=== PATIENT | male | born 1960 | race Caucasian/White ===

== ENCOUNTER 2016-08-12 11:57 | Inpatient (IN) | payer MEDICAID ==
[2016-08-12] MEDS ORDERED: Ondansetron 4 MG/2 ML SDV IV PRN (14:11)
[2016-08-12] MEDS ORDERED: Temazepam 15 MG Cap PO PRN (14:11)
[2016-08-12] MEDS ORDERED: Bisacodyl 10 MG Supp RECTAL PRN (14:19)
[2016-08-12] MEDS ORDERED: TIZANIDINE 4 MG PO PRN (14:19)
--- NOTE | 2016-08-12 14:34 | PCM.HP ---
H&P History of Present Illness - General Date of Service: 08/12/16 Admit Problem/Dx: Admission Diagnosis/Problem Admission Diagnosis/Problem Weakness Source of Information: Patient, Old records - History of Present Illness Initial Comments - Free Text/Narative: Chief complaint: Swing bed admission for generalized weakness and deconditioning. History of present illness: Patient was recently hospitalized in [place]. He required ICU stay. He had severe lactic acidosis, probably combination of acute renal failure, chronic metformin therapy, chronic alcohol dependence and intoxication. He was given fluid challenge there are no symptoms have largely resolved. They were concerned about toxic ingestion but test for methanol and ethylene glycol were negative. He had and the tap of ascites for SBP and this was also negative. He is feeling pretty good currently. He is tolerating diet , he's beginning to walk around some with the bathroom but still using occasional assistance. Past medical history: Alcohol dependence repeat treatment, he'll maintain long periods of sobriety months on and go on large binges drinking half a gallon of vodka daily, history of acute renal failure, hepatitis C, chronic pain syndrome , chronic pancreatitis, history of UTI history depression history gastroparesis , hypertension, history of seizures, history of peptic ulcer disease, history of lactic acidosis, history diabetes to last A1c 8.6. Medications: Prozac, baclofen, Duca lax, BuSpar, magnesium oxide, Lasix, tramadol, Zofran, Norvasc, NovoLog sliding scale, Levemir low-dose six units daily, metformin, Januvia, trazodone, pancreatic enzymes, Neurontin, Toprol, Zanaflex, when necessary Viagra, Prilosec, Vistaril, Bentyl, multivitamin. Allergies: Compazine and Reglan and Toradol. Family history: Noncontributory. History: Heavy alcohol dependence history, long periods sobriety followed by periods of heavy inch drinking of hard alcohol. He lives alone, his father's in my not, doesn't have a lot of social support, is on disability. Smokes 1.5 pack per day. Review of systems: Denies fever denies chest pain denies dyspnea. Still notes mild upset stomach. No diarrhea and no dysuria no rash no joint pain. No self harming ideation. No hallucinations or seizures. Physical exam: Pressure 150 the over 90, pulse 80, afebrile. Resting comfortably in bed. Pleasant, cooperative, euthymic, no distress, heart and lungs clear to auscultation, abdomen soft nontender, external is warm well perfused without edema. Assessment and plan: #1. Swing bed admission for reconditioning after prolonged ICU stay for severe lactic acidosis secondary to alcohol dependence. PT, OT consults. Seems to be doing fairly well, do not anticipate prolonged stay. #2. Alcohol dependence, recurrent. He plans on following up with his prior treatment regimen outpatient at [facility] on return home. #3. Diabetes mellitus. Borderline control. Monitor sugars here. Recommend permanent discontinuation of metformin given chronic liver and kidney issues along with this recent severe episode of lactic acidosis. Continue Januvia and insulin. #4. Recent acute renal failure. Recheck electrolytes a.m. He is tolerating oral intake. Neck Pain Score (Numeric/FACES): 4 Lower Abdomen Pain Score (Numeric/FACES): 6 - Related Data Allergies/Adverse Reactions: Allergies Allergy/AdvReac Type Severity Reaction Status Date / Time blue dye Allergy Other Verified 08/12/16 11:00 ketorolac [From Toradol] Allergy Itching Verified 08/12/16 10:30 yellow dye Allergy Other Verified 08/12/16 11:00 metoclopramide [From Reglan] AdvReac Tachycardia Verified 08/12/16 12:56 prochlorperazine AdvReac Tachycardia Verified 08/12/16 12:56 [From Compazine] Home Medications: Home Meds Baclofen 10 mg PO TID 08/12/16 [History] Bisacodyl [Dulcolax] 10 mg RECTAL DAILY PRN 08/12/16 [History] Dicyclomine [Bentyl] 10 mg PO QIDACANDBED 08/12/16 [History] FLUoxetine HCl [Fluoxetine HCl] 40 mg PO DAILY 08/12/16 [History] Furosemide [Lasix] 40 mg PO DAILY 08/12/16 [History] Gabapentin [Neurontin] 600 mg PO TID 08/12/16 [History] Insulin Aspart [NovoLOG] 4 - 10 units SQ TIDMEALS 08/12/16 [History] Insulin Detemir [Levemir] 6 units SQ BEDTIME 08/12/16 [History] Lipase/Protease/Amylase [Viokace 20,490-78,300 Units Tb] 1 tab PO TIDMEALS 08/12 [History] Magnesium Oxide 500 mg PO DAILY 08/12/16 [History] Metoprolol Succinate [Toprol XL] 100 mg PO DAILY 08/12/16 [History] Multivitamin [Multivitamins] 1 each PO DAILY 08/12/16 [History] Omeprazole 20 mg PO BIDAC 08/12/16 [History] Ondansetron HCl [Ondansetron] 4 - 8 mg PO TID PRN 08/12/16 [History] Sildenafil [Viagra] 50 mg PO DAILY PRN 08/12/16 [History] SitaGLIPtin [Januvia] 100 mg PO DAILY 08/12/16 [History] amLODIPine [Norvasc] 5 mg PO DAILY 08/12/16 [History] busPIRone [Buspar] 15 mg PO BID 08/12/16 [History] hydrOXYzine Pamoate [Hydroxyzine Pamoate] 50 mg PO Q4H PRN 08/12/16 [History] metFORMIN HCl [Metformin HCl] 1,000 mg PO BIDMEALS 08/12/16 [History] tiZANidine [Zanaflex] 2 - 4 mg PO Q6HR PRN 08/12/16 [History] traMADol HCl [Tramadol HCl ER] 100 mg PO DAILY PRN 08/12/16 [History] traZODone HCl [Trazodone HCl] 200 mg PO BEDTIME 08/12/16 [History] Past Medical History Cardiovascular History: Reports: Aneurysm, Hypertension, Other (see below) Other Cardiovascular History: AA repair Gastrointestinal History: Reports: GERD, Other (see below) Other Gastrointestinal History: duodenal ulcers, ascities Musculoskeletal History: Reports: Neck pain, chronic, Other (see below) Other Musculoskeletal History: 2 disc replaced in neck Psychiatric History: Reports: Addiction, Anxiety, Depression, Other (see below) Other Psychiatric History: recent relapse in April with acute alcolholism Endocrine/Metabolic History: Reports: Diabetes, type II, Other (see below) Other Endocrine/Metabolic History: pancreatitis Hematologic History: Reports: Anemia, Other (see below) Other Hematologic History: "low sodium, stopped making platelets" Dermatologic History: Reports: Other (see below) Other Dermatologic History: hx of coccyx pressure ulcer - Infectious Disease History Infectious Disease History: Reports: Hepatitis C, Other (see below) Other Infectious Disease History: hx of mrsa - Past Surgical History Cardiovascular Surgical History: Reports: AAA repair GI Surgical History: Reports: Cholecystectomy Social & Family History - Family History Family Medical History: Noncontributory - Tobacco Use Smoking Status *Q: Former Smoker Years of Tobacco use: 45 Packs/Tins Daily: 1 Used Tobacco, but Quit: No - Caffeine Use Caffeine Use: Reports: Coffee, Soda - Alcohol Use Days Per Week of Alcohol Use: 7 Number of Drinks Per Day: 20 Total Drinks Per Week: 140 Date of Last Drink: 08/01/16 - Recreational Drug Use Recreational Drug Use: No H&P Review of Systems - Review of Systems: Review Of Systems: See Below Exam - Exam Exam: See Below - Vital Signs Vital Signs: Last Vital Signs Temp 36.7 C 08/12/16 12:06 Pulse 82 08/12/16 12:06 Resp 20 08/12/16 12:06 BP 152/78 H 08/12/16 12:06 Pulse Ox 99 08/12/16 12:06 Weight: 67.018 kg *Q Meaningful Use (ADM) - VTE *Q VTE Criteria *Q: - Stroke *Q Stroke Criteria *Q: - AMI *Q AMI Criteria *Q: Problem List Initiated/Reviewed/Updated: Yes Orders Last 24hrs: Active Orders 24 hr Category Date Time Status Admission Status [Patient Status] [ADT] Routine ADT 08/12/16 09:50 Active Patient Status [ADT] Routine ADT 08/12/16 14:11 Ordered Ambulate [RC] PER UNIT ROUTINE Care 08/12/16 14:12 Ordered Blood Glucose Check, Bedside [RC] QIDACANDBED Care 08/12/16 14:11 Ordered Oxygen Therapy [RC] PRN Care 08/12/16 14:11 Ordered Up ad Shabana [RC] ASDIRECTED Care 08/12/16 14:11 Ordered VTE/DVT Education [RC] PER UNIT ROUTINE Care 08/12/16 14:11 Ordered Vital Signs [RC] Q4H Care 08/12/16 14:11 Ordered Consult to Mold Design Engineer [CONS] Routine Cons 08/12/16 13:35 Active OT Evaluation and Treatment [CONS] Routine Cons 08/12/16 13:20 Active PT Evaluation and Treatment [CONS] Routine Cons 08/12/16 13:20 Active Regular Diet [DIET] Diet 08/12/16 Dinner Ordered CBC WITH AUTO DIFF [HEME] AM Lab 08/13/16 05:11 Ordered COMPREHENSIVE METABOLIC PN,CMP [CHEM] AM Lab 08/13/16 05:11 Ordered INR,PT,PROTHROMBIN TIME [COAG] AM Lab 08/13/16 05:11 Ordered MAGNESIUM [CHEM] AM Lab 08/13/16 05:11 Ordered Acetaminophen [Tylenol] Med 08/12/16 14:11 Ordered 650 mg PO Q4H PRN Baclofen [Lioresal] Med 08/12/16 20:00 Ordered 10 mg PO TID Bisacodyl [Dulcolax] Med 08/12/16 14:19 Ordered 10 mg RECTAL DAILY PRN Dicyclomine [Bentyl] Med 08/12/16 17:00 Ordered 10 mg PO QIDACANDBED FLUoxetine HCl [Fluoxetine HCl] Med 08/13/16 08:00 Ordered 40 mg PO DAILY Furosemide [Lasix] Med 08/13/16 08:00 Ordered 40 mg PO DAILY Gabapentin Med 08/12/16 20:00 Ordered 600 mg PO TID Insulin Aspart [NovoLOG] Med 08/12/16 18:00 Ordered 4 - 10 unit SUBCUT TIDMEALS Insulin Detemir Med 08/12/16 20:00 Ordered 6 units SQ BEDTIME Lipase/Protease/Amylase [Viokace 20,880-78,300 Units Tb Med 08/12/16 18:00 Ordered ] 1 tab PO TIDMEALS Magnesium Oxide [Magnesium Oxide] Med 08/13/16 08:00 Ordered 500 mg PO DAILY Metoprolol Succinate [Toprol XL] Med 08/13/16 08:00 Ordered 100 mg PO DAILY Multivitamin [Multivitamins] Med 08/13/16 08:00 Ordered 1 each PO DAILY Omeprazole Med 08/12/16 17:00 Ordered 20 mg PO BIDAC Ondansetron HCl Med 08/12/16 14:19 Ordered 4 - 8 mg PO TID PRN Ondansetron [Zofran] Med 08/12/16 14:11 Ordered 4 mg IV Q6H PRN SitaGLIPtin [Januvia] Med 08/13/16 08:00 Ordered 100 mg PO DAILY Temazepam [Restoril] Med 08/12/16 14:11 Ordered 15 mg PO BEDTIME PRN amLODIPine [Norvasc] Med 08/13/16 08:00 Ordered 5 mg PO DAILY busPIRone [Buspar] Med 08/12/16 20:00 Ordered 15 mg PO BID hydrOXYzine Pamoate [Hydroxyzine Pamoate] Med 08/12/16 14:19 Ordered 50 mg PO Q4H PRN tiZANidine [Zanaflex] Med 08/12/16 14:19 Ordered 2 - 4 mg PO Q6HR PRN traMADol HCl [Tramadol HCl ER] Med 08/12/16 14:19 Ordered 100 mg PO DAILY PRN traZODone HCl [Trazodone HCl] Med 08/12/16 20:00 Ordered 200 mg PO BEDTIME Resuscitation Status Routine Resus Stat 08/12/16 14:11 Ordered Medication Orders Acetaminophen (Tylenol) 650 mg PO Q4H PRN PRN Reason: Pain (Mild 1-3)/fever Ondansetron HCl (Zofran) 4 mg IV Q6H PRN PRN Reason: Nausea/Vomiting Temazepam (Restoril) 15 mg PO BEDTIME PRN PRN Reason: Sleep
[2016-08-12] MEDS: DICYCLOMINE 10 MG PO SCH ×2 (16:42→22:01)
[2016-08-12] MEDS: TRAMADOL 100 MG PO PRN (16:44)
[2016-08-12] MEDS: Omeprazole 20 MG Cap.CR PO SCH (16:47)
[2016-08-12] MEDS: ONDANSETRON 4 MG PO PRN (16:51)
[2016-08-12] MEDS: AMYLASE PO SCH (17:00)
[2016-08-12] MEDS: PROTEASE PO SCH (17:00)
[2016-08-12] MEDS: LIPASE PO SCH (17:00)
[2016-08-12] MEDS: TRAZODONE 100 MG PO SCH (21:59)
[2016-08-12] MEDS: GABAPENTIN 600 MG PO SCH (22:01)
[2016-08-12] MEDS: INSULIN DETEMIR SQ SCH (22:26)
[2016-08-13] MEDS: ONDANSETRON 4 MG PO PRN (06:48)
[2016-08-13] MEDS: DICYCLOMINE 10 MG PO SCH ×4 (06:49→20:28)
[2016-08-13] MEDS: Omeprazole 20 MG Cap.CR PO SCH ×2 (06:49→17:45)
[2016-08-13] MEDS: Acetaminophen 325 MG Tab PO PRN ×2 (06:59→20:40)
[2016-08-13] MEDS: FLUOXETINE 20 MG PO SCH (07:57)
[2016-08-13] MEDS: FUROSEMIDE 40 MG PO SCH (07:58)
[2016-08-13] MEDS: SITAGLIPTIN 100 MG PO SCH (07:58)
[2016-08-13] MEDS: METOPROLOL SUCCINATE 100 MG PO SCH (07:59)
[2016-08-13] MEDS: Multivitamins with Iron/Calcium/Folic Acid/Minerals Tab PO SCH (08:00)
[2016-08-13] MEDS: Magnesium Oxide 400 MG Tab PO SCH (08:00)
[2016-08-13] MEDS: GABAPENTIN 600 MG PO SCH ×3 (08:00→20:29)
[2016-08-13] MEDS: PROTEASE PO SCH ×4 (08:01→18:35)
[2016-08-13] MEDS: LIPASE PO SCH ×4 (08:01→18:35)
[2016-08-13] MEDS: AMYLASE PO SCH ×4 (08:01→18:35)
[2016-08-13] MEDS ORDERED: Sodium Chloride 0.9% 1,000 ML IV ONE (10:28)
[2016-08-13] MEDS ORDERED: Insulin Aspart 100 Units/ML 3 ML Pen SUBCUT ONE (10:30)
[2016-08-13] MEDS ORDERED: Furosemide 20 MG/2 ML VIAL IVPUSH ONE (10:31)
[2016-08-13] MEDS: Sodium Chloride 0.9% 1,000 ML IV SCH ×2 (15:34→23:37)
[2016-08-13] MEDS ORDERED: Sodium Chloride 0.9% 10 ML Syringe FLUSH PRN (15:37)
[2016-08-13] MEDS: INSULIN ASPART 100 UNIT/ML SUBCUT SCH (17:45)
[2016-08-13] MEDS: TRAZODONE 100 MG PO SCH (20:30)
[2016-08-13] MEDS: INSULIN DETEMIR SQ SCH (20:36)
[2016-08-14] MEDS: DICYCLOMINE 10 MG PO SCH ×4 (06:14→19:50)
[2016-08-14] MEDS: Omeprazole 20 MG Cap.CR PO SCH ×2 (06:15→17:45)
[2016-08-14] MEDS: Sodium Chloride 0.9% 1,000 ML IV SCH ×3 (07:40→23:32)
[2016-08-14] MEDS: Magnesium Oxide 400 MG Tab PO SCH (07:46)
[2016-08-14] MEDS: Multivitamins with Iron/Calcium/Folic Acid/Minerals Tab PO SCH (07:46)
[2016-08-14] MEDS: LIPASE PO SCH ×3 (07:47→17:45)
[2016-08-14] MEDS: GABAPENTIN 600 MG PO SCH ×3 (07:47→19:52)
[2016-08-14] MEDS: PROTEASE PO SCH ×3 (07:47→17:45)
[2016-08-14] MEDS: AMYLASE PO SCH ×3 (07:47→17:45)
[2016-08-14] MEDS: FLUOXETINE 20 MG PO SCH (07:48)
[2016-08-14] MEDS: METOPROLOL SUCCINATE 100 MG PO SCH (07:49)
[2016-08-14] MEDS: FUROSEMIDE 40 MG PO SCH (07:49)
[2016-08-14] MEDS: SITAGLIPTIN 100 MG PO SCH (07:49)
[2016-08-14] MEDS: INSULIN ASPART 100 UNIT/ML SUBCUT SCH ×3 (07:50→17:45)
[2016-08-14] MEDS ORDERED: Sodium Polystyrene Sulfonate 15 GM/60 ML Susp 60 ML Bot PO ONE (09:37)
[2016-08-14] MEDS: Acetaminophen 325 MG Tab PO PRN ×2 (10:13→19:57)
[2016-08-14] MEDS: TRAZODONE 100 MG PO SCH (19:51)
[2016-08-14] MEDS: INSULIN DETEMIR SQ SCH (20:02)
[2016-08-15] MEDS: DICYCLOMINE 10 MG PO SCH ×4 (06:54→19:48)
[2016-08-15] MEDS: Omeprazole 20 MG Cap.CR PO SCH ×2 (06:54→17:52)
[2016-08-15] MEDS: Magnesium Oxide 400 MG Tab PO SCH ×2 (08:09→19:47)
[2016-08-15] MEDS: INSULIN ASPART 100 UNIT/ML SUBCUT SCH ×4 (08:09→17:50)
[2016-08-15] MEDS: Multivitamins with Iron/Calcium/Folic Acid/Minerals Tab PO SCH (08:09)
[2016-08-15] MEDS: FUROSEMIDE 40 MG PO SCH (08:10)
[2016-08-15] MEDS: FLUOXETINE 20 MG PO SCH (08:10)
[2016-08-15] MEDS: SITAGLIPTIN 100 MG PO SCH (08:10)
[2016-08-15] MEDS: GABAPENTIN 600 MG PO SCH ×4 (08:11→19:50)
[2016-08-15] MEDS: PROTEASE PO SCH ×4 (08:11→17:51)
[2016-08-15] MEDS: LIPASE PO SCH ×4 (08:11→17:51)
[2016-08-15] MEDS: AMYLASE PO SCH ×4 (08:11→17:51)
[2016-08-15] MEDS: METOPROLOL SUCCINATE 100 MG PO SCH (08:12)
[2016-08-15] MEDS ORDERED: Magnesium Sulfate/Water 2 GM in Premix Bag 1 BAG IV ONE (09:32)
[2016-08-15] MEDS: TRAZODONE 100 MG PO SCH (19:48)
[2016-08-15] MEDS: ONDANSETRON 4 MG PO PRN (19:49)
[2016-08-15] MEDS: INSULIN DETEMIR SQ SCH (19:53)
[2016-08-15] MEDS: Acetaminophen 325 MG Tab PO PRN (20:00)
[2016-08-16] MEDS: Omeprazole 20 MG Cap.CR PO SCH ×2 (06:46→16:17)
[2016-08-16] MEDS: DICYCLOMINE 10 MG PO SCH ×4 (06:47→19:44)
[2016-08-16 07:37] LABS: CHLORIDE,CL 104 mmol/L (98-107); SODIUM,NA 136 mmol/L (136-145)
[2016-08-16] MEDS: METOPROLOL SUCCINATE 100 MG PO SCH (07:44)
[2016-08-16] MEDS: FUROSEMIDE 40 MG PO SCH (07:45)
[2016-08-16] MEDS: SITAGLIPTIN 100 MG PO SCH (07:46)
[2016-08-16] MEDS: AMYLASE PO SCH ×3 (07:47→18:01)
[2016-08-16] MEDS: FLUOXETINE 20 MG PO SCH (07:47)
[2016-08-16] MEDS: PROTEASE PO SCH ×3 (07:47→18:01)
[2016-08-16] MEDS: LIPASE PO SCH ×3 (07:47→18:01)
[2016-08-16] MEDS: GABAPENTIN 600 MG PO SCH ×3 (07:48→19:45)
[2016-08-16] MEDS: ONDANSETRON 4 MG PO PRN (07:49)
[2016-08-16] MEDS: INSULIN ASPART 100 UNIT/ML SUBCUT SCH ×3 (07:50→18:01)
[2016-08-16] MEDS: Magnesium Oxide 400 MG Tab PO SCH ×2 (07:50→19:43)
[2016-08-16] MEDS: Multivitamins with Iron/Calcium/Folic Acid/Minerals Tab PO SCH (07:50)
--- NOTE | 2016-08-16 08:48 | PN ---
Progress Note for CINDA LUONG Date: 08/15/2016 Room #: VM.211 SUBJECTIVE: A 55-year-old white male, has been on swing bed for several days following an ICU stay in [place] for alcohol related liver and pancreatic disease. His strength has been improving. His appetite is voracious. He requests what the nurses described as vast quantities of fluid. I explained to him what we have available to him on the weekends for fluid intake. Hopefully, it will meet his needs, may not be as much as he would like. He had required electrolyte management this weekend. His potassium had been up to 6.9 on 08/13/2016 and then on 08/14/2016 it was 6.6. At that time, he was given a dose of Kayexalate orally. His potassium came down to 5.7 yesterday. He is feeling better, getting his strength back. Ambulating in the hallways. He requests to go outside. OBJECTIVE: He is alert. He is afebrile. His vital signs are stable. LABORATORY: Today, his potassium is down to 5.3. His hemoglobin is 9.0, stable. Magnesium low at 1.1. ASSESSMENT: Alcohol dependence, diabetes, hyperkalemia - improved to resolved. Hypomagnesemia. PLAN: We will add some magnesium sulfate 2 g IV 1 dose today. Then, increase his magnesium orally to b.i.d. Repeat his lab work in the morning. FM: 08/15/2016 09:59:23 MODL: 08/15/2016 10:50:52 /[id number] MTDD
[2016-08-16] MEDS: TRAMADOL 100 MG PO PRN (12:15)
[2016-08-16] MEDS: Acetaminophen 325 MG Tab PO PRN (16:16)
[2016-08-16] MEDS: HYDROXYZINE 50 MG PO PRN (16:17)
[2016-08-16] MEDS: TRAZODONE 100 MG PO SCH (19:44)
[2016-08-16] MEDS: INSULIN DETEMIR SQ SCH (19:47)
[2016-08-17] MEDS: Omeprazole 20 MG Cap.CR PO SCH ×2 (06:22→17:08)
[2016-08-17] MEDS: DICYCLOMINE 10 MG PO SCH ×4 (06:22→19:48)
[2016-08-17] MEDS: Multivitamins with Iron/Calcium/Folic Acid/Minerals Tab PO SCH (07:42)
[2016-08-17] MEDS: Magnesium Oxide 400 MG Tab PO SCH ×2 (07:42→19:45)
[2016-08-17] MEDS: GABAPENTIN 600 MG PO SCH ×3 (07:43→19:49)
[2016-08-17] MEDS: SITAGLIPTIN 100 MG PO SCH (07:44)
[2016-08-17] MEDS: FUROSEMIDE 40 MG PO SCH (07:44)
[2016-08-17] MEDS: METOPROLOL SUCCINATE 100 MG PO SCH (07:44)
[2016-08-17] MEDS: LIPASE PO SCH ×3 (07:45→17:08)
[2016-08-17] MEDS: PROTEASE PO SCH ×3 (07:45→17:08)
[2016-08-17] MEDS: FLUOXETINE 20 MG PO SCH (07:45)
[2016-08-17] MEDS: AMYLASE PO SCH ×3 (07:45→17:08)
[2016-08-17] MEDS: INSULIN ASPART 100 UNIT/ML SUBCUT SCH ×3 (07:46→17:08)
[2016-08-17] MEDS: TRAMADOL 100 MG PO PRN ×2 (07:48→19:45)
[2016-08-17] MEDS: ONDANSETRON 4 MG PO PRN (17:09)
[2016-08-17] MEDS: Acetaminophen 325 MG Tab PO PRN (17:13)
[2016-08-17] MEDS: TRAZODONE 100 MG PO SCH (19:47)
[2016-08-17] MEDS: INSULIN DETEMIR SQ SCH (19:51)
[2016-08-18] MEDS: DICYCLOMINE 10 MG PO SCH (06:11)
[2016-08-18] MEDS: Omeprazole 20 MG Cap.CR PO SCH (06:11)
[2016-08-18 06:21] VITALS: BP 140/68
[2016-08-18] MEDS: Multivitamins with Iron/Calcium/Folic Acid/Minerals Tab PO SCH (07:44)
[2016-08-18] MEDS: Magnesium Oxide 400 MG Tab PO SCH (07:44)
[2016-08-18] MEDS: FLUOXETINE 20 MG PO SCH (07:45)
[2016-08-18] MEDS: FUROSEMIDE 40 MG PO SCH (07:46)
[2016-08-18] MEDS: METOPROLOL SUCCINATE 100 MG PO SCH (07:46)
[2016-08-18] MEDS: PROTEASE PO SCH (07:46)
[2016-08-18] MEDS: LIPASE PO SCH (07:46)
[2016-08-18] MEDS: AMYLASE PO SCH (07:46)
[2016-08-18] MEDS: SITAGLIPTIN 100 MG PO SCH (07:47)
[2016-08-18] MEDS: GABAPENTIN 600 MG PO SCH (07:48)
[2016-08-18] MEDS: INSULIN ASPART 100 UNIT/ML SUBCUT SCH (07:49)
[2016-08-18] MEDS: HYDROXYZINE 50 MG PO PRN (07:49)
--- NOTE | 2016-08-18 09:23 | PCM.DCSUM1 ---
Discharge Summary - Discharge Data Discharge Date: 08/18/16 Discharge Disposition: Home, Self-Care 01 Condition: Good - Discharge Diagnosis/Problem(s) (1) Weakness SNOMED Code(s): 62313904 ICD Code: R53.1 - WEAKNESS Status: Acute Current Visit: Yes - Patient Summary/Data Consults: Consultations 08/12/16 13:20 OT Evaluation and Treatment [CONS] Routine PT Evaluation and Treatment [CONS] Routine 08/12/16 13:35 Consult to Garageman [CONS] Routine - Discharge Plan Home Medications: Home Meds Baclofen 10 mg PO TID 08/12/16 [History] Bisacodyl [Dulcolax] 10 mg RECTAL DAILY PRN 08/12/16 [History] Dicyclomine [Bentyl] 10 mg PO QIDACANDBED 08/12/16 [History] FLUoxetine HCl [Fluoxetine HCl] 40 mg PO DAILY 08/12/16 [History] Furosemide [Lasix] 40 mg PO DAILY 08/12/16 [History] Gabapentin [Neurontin] 600 mg PO TID 08/12/16 [History] Insulin Aspart [NovoLOG] 4 - 10 units SQ TIDMEALS 08/12/16 [History] Insulin Detemir [Levemir] 6 units SQ BEDTIME 08/12/16 [History] Lipase/Protease/Amylase [Viokace 20,880-78,300 Units Tb] 1 tab PO TIDMEALS 08/12 [History] Magnesium Oxide 500 mg PO DAILY 08/12/16 [History] Metoprolol Succinate [Toprol XL] 100 mg PO DAILY 08/12/16 [History] Multivitamin [Multivitamins] 1 each PO DAILY 08/12/16 [History] Omeprazole 20 mg PO BIDAC 08/12/16 [History] Ondansetron HCl [Ondansetron] 4 - 8 mg PO TID PRN 08/12/16 [History] Sildenafil [Viagra] 50 mg PO DAILY PRN 08/12/16 [History] SitaGLIPtin [Januvia] 100 mg PO DAILY 08/12/16 [History] amLODIPine [Norvasc] 5 mg PO DAILY 08/12/16 [History] busPIRone [Buspar] 15 mg PO BID 08/12/16 [History] hydrOXYzine Pamoate [Hydroxyzine Pamoate] 50 mg PO Q4H PRN 08/12/16 [History] tiZANidine [Zanaflex] 2 - 4 mg PO Q6HR PRN 08/12/16 [History] traZODone HCl [Trazodone HCl] 200 mg PO BEDTIME 08/12/16 [History] Acetaminophen [Tylenol] 650 mg PO Q4H PRN #0 tablet 08/18/16 [Rx] Baclofen [Lioresal] 0 mg PO TID tablet 08/18/16 [Rx] Bisacodyl [Dulcolax] 10 mg RECTAL DAILY PRN #0 supp 08/18/16 [Rx] Dicyclomine [Bentyl] 0 mg PO QIDACANDBED cap 08/18/16 [Rx] FLUoxetine HCl [Fluoxetine HCl] 0 mg PO DAILY 08/18/16 [Rx] Insulin Aspart [NovoLOG] 4 unit SUBCUT TIDMEALS pen 08/18/16 [Rx] - Discharge Summary/Plan Comment DC Time >30 min.: No Discharge Summary/Plan Comment: Patient was admitted swing bed for rehabilitation of some generalized weakness after hospitalization in [place] ICU for severe lactic acidosis secondary to alcohol dependence and vodka binge along with acute renal failure, dehydration and metformin therapy. Most of his chemistry abnormalities result with conservative therapy there. He had mild hyperkalemia here which is probably from mild volume depletion as well as uncontrolled diabetes. Largely normalized with sliding scale insulin and normal saline challenge and oral Lasix by time of discharge. He passed PT and OT without issues. He feels ready to return home. He does not have a lot of social support in place. He has a history of alcohol dependence with repeat severe binges followed by long periods of abstinence. Stop metformin due to history of severe acidosis. Monitor sugars closely with sliding scale insulin as needed. Sure to drink enough fluids at home. Follow-up with primary in one week to recheck potassium and sugars. Follow-up with [facility] services to work on maintaining sobriety from alcohol. - Patient Data Vitals - Most Recent: Last Vital Signs Temp 36.7 C 08/18/16 06:00 Pulse 86 08/18/16 06:00 Resp 18 08/18/16 06:00 BP 140/68 08/18/16 07:47 Pulse Ox 98 08/18/16 06:00 Weight - Most Recent: 67.018 kg I&O - Last 24 hours: Intake & Output 08/17/16 08/18/16 08/18/16 22:59 06:59 14:59 Intake Total 720 Balance 720 Lab Results - Last 24 hrs: Laboratory Results - last 24 hr 08/17/16 08/17/16 08/17/16 Range/Units 11:06 17:07 19:42 POC Glucose 371 H 298 H 180 H (74-106) mg/dL 08/18/16 Range/Units 06:10 POC Glucose 351 H (74-106) mg/dL Med Orders - Current: Current Medications Acetaminophen (Tylenol) 650 mg PO Q4H PRN PRN Reason: Pain (Mild 1-3)/fever Last Admin: 08/17/16 17:13 Dose: 650 mg Amlodipine Besylate (Norvasc) 0 mg PO DAILY [facility] Last Admin: 08/18/16 07:47 Dose: 5 mg Baclofen (Lioresal) 0 mg PO TID [facility] Last Admin: 08/18/16 07:44 Dose: 10 mg Bisacodyl (Dulcolax) 10 mg RECTAL DAILY PRN PRN Reason: Constipation Buspirone HCl (Buspar) 0 mg PO BID [facility] Last Admin: 08/18/16 07:47 Dose: 15 mg Dicyclomine HCl (Bentyl) 0 mg PO QIDACANDBED [facility] Last Admin: 08/18/16 06:11 Dose: 10 mg Furosemide (Lasix) 0 mg PO DAILY [facility] Last Admin: 08/18/16 07:46 Dose: 40 mg Insulin Aspart (Novolog) 4 unit SUBCUT TIDMEALS [facility] Last Admin: 08/18/16 07:49 Dose: 8 units Magnesium Oxide (Magnesium Oxide) 400 mg PO BID [facility] Last Admin: 08/18/16 07:44 Dose: 400 mg Multivitamins/Minerals (Thera M Plus) 1 tab PO DAILY [facility] Last Admin: 08/18/16 07:44 Dose: 1 tab Fluoxetine 20mg (Own (Supply)) 0 mg PO DAILY [facility] Last Admin: 08/18/16 07:45 Dose: 20 mg Gabapentin 600 Mg ( (Own Supply)) 0 mg PO TID [facility] Last Admin: 08/18/16 07:48 Dose: 600 mg Insulin Detemir ( Levemir) *Own Supply * 0 units SQ BEDTIME [facility] Last Admin: 08/17/16 19:51 Dose: 6 units Lipase/Protease/Amylase [Zenpep ( Lipase 10,000)] ( Own Supply) 1 tab PO TIDMEALS [facility] Last Admin: 08/18/16 07:46 Dose: 1 tab Metoprolol Succinate [Toprol Xl] 100 Mg *Own Supply* 0 mg PO DAILY [facility] Last Admin: 08/18/16 07:46 Dose: 100 mg Ondansetron 4mg (Own (Supply)) 0 mg PO TID PRN PRN Reason: Nausea/Vomiting Last Admin: 08/17/16 17:09 Dose: 8 mg Hydroxyzine 50mg ( (Own Supply)) 0 mg PO Q4H PRN PRN Reason: Anxiety Last Admin: 08/18/16 07:49 Dose: 50 mg Tramadol Er 100 Mg ( (Own Supply)) 0 mg PO DAILY PRN PRN Reason: Pain Last Admin: 08/17/16 19:45 Dose: 100 mg Trazodone 100mg (Own (Supply)) 0 mg PO BEDTIME [facility] Last Admin: 08/17/16 19:47 Dose: 200 mg Omeprazole (Omeprazole) 20 mg PO BIDAC [facility] Last Admin: 08/18/16 06:11 Dose: 20 mg Sitagliptin Phosphate (Januvia) 0 mg PO DAILY [facility] Last Admin: 08/18/16 07:47 Dose: 100 mg Sodium Chloride (Saline Flush) 10 ml FLUSH ASDIRECTED PRN PRN Reason: Keep Vein Open Tizanidine HCl (Zanaflex) 0 mg PO Q6HR PRN PRN Reason: PAIN/MUSCLE SPASM Last Admin: 08/12/16 16:49 Dose: 2 mg Discontinued Medications Furosemide (Lasix) 20 mg IVPUSH NOW ONE Stop: 08/13/16 10:32 Last Admin: 08/13/16 11:26 Dose: 20 mg Sodium Chloride (Normal Saline) 1,000 mls @ 999 mls/hr IV .BOLUS ONE Stop: 08/13/16 11:28 Last Admin: 08/13/16 11:27 Dose: 999 mls/hr Sodium Chloride (Normal Saline) 1,000 mls @ 125 mls/hr IV ASDIRECTED [facility] Last Admin: 08/14/16 23:32 Dose: 125 mls/hr Magnesium Sulfate 2 gm/ Premix 50 mls @ 25 mls/hr IV ONETIME ONE Stop: 08/15/16 11:31 Last Admin: 08/15/16 10:37 Dose: 25 mls/hr Magnesium Oxide (Magnesium Oxide) 400 mg PO DAILY [facility] Last Admin: 08/15/16 08:09 Dose: 400 mg Insulin Aspart 100 Units/Ml 3 Ml Pen ( Own Supply) 0 each SUBCUT TIDMEALS [facility] PRN Reason: Protocol Last Admin: 08/13/16 11:36 Dose: 8 each Insulin Aspart 100 (Units/Ml 3 Ml Pen) 0 each SUBCUT ONETIME ONE Stop: 08/13/16 10:31 Last Admin: 08/13/16 11:27 Dose: 10 each Sodium Polystyrene Sulfonate (Kayexalate) 15 gm PO ONETIME ONE Stop: 08/14/16 09:38 Last Admin: 08/14/16 10:11 Dose: 15 gm *Q Meaningful Use (DIS) - VTE *Q VTE Criteria *Q: - Stroke *Q Stroke Criteria *Q: - AMI *Q AMI Criteria *Q:
== END 2016-08-18 10:30 | disposition home or self-care (01) | DRG 641 ==
LOC: VM.MS 11:57
PROVIDERS: ADMIT Family Medicine; ATTEND Family Medicine
DX: E87.2 Acidosis (principal); N17.9 Acute kidney failure, unspecified; F10.20 Alcohol dependence, uncomplicated; R53.1 Weakness; Z86.19 Personal history of other infectious and parasitic diseases; K70.9 Alcoholic liver disease, unspecified; Z79.899 Other long term (current) drug therapy; F17.210 Nicotine dependence, cigarettes, uncomplicated; Z79.4 Long term (current) use of insulin; K21.9 Gastro-esophageal reflux disease without esophagitis; I10 Essential (primary) hypertension; D64.9 Anemia, unspecified; E87.5 Hyperkalemia; E83.42 Hypomagnesemia; F41.8 Other specified anxiety disorders; E86.0 Dehydration
CPT/HCPCS: 36415; 36416; 80048; 80053; 82962; 83010; 83735; 84100; 84132; 85025; 85610; 93005; 97110-GP; 97116-GP; 97161-GP; 97165-GO; A9270-GY; J1940; J3475; J7030